=== PATIENT | female | born 1995 | race Caucasian/White ===

== ENCOUNTER → 2018-02-07 14:00 | Outpatient (CLI) | payer BC, SELFPAY ==
[2018-02-14 13:21] LABS: HPV Reflexed? NOT INDICATED
== END ==
PROVIDERS: Family Provider Family Medicine; Visit Provider Obstetrics & Gynecology
DX: Z12.4 Encounter for screening for malignant neoplasm of cervix (principal)
CPT/HCPCS: 88175; G0145

== ENCOUNTER → 2018-04-18 14:19 | Outpatient (CLI) | payer BC, SELFPAY ==
--- NOTE | 2018-04-18 | CER_PTH ---
PATIENT: PANCHITO SHER LOC: [facility] U#:[id number] AGE/SX: 29/F ROOM: RE04/18/[address]: Dr. Aditi Hernandez MD : 1995 BED: DIS: SPEC #: [id number] RECD: 04/18/18 14:32 STATUS: SHAEKEL QUINTANA #: [id number] RISSA: 04/18/18 00:[address]: Aditi Hernandez DEPT: SURGICAL PATHOLOGY RECD BY: Ron Perry Tissues: A - Uterine cervix, NOS B - Endocervical Procedures: Pap Stain (control) Special Stain Group II Surgery Specimen Level IV Cell Block HEADER OPERATION: Colposcopy with biopsy PRE-OP DIAGNOSIS: HGSIL TISSUE SUBMITTED: A - Cervical biopsy, B - ECC MICROSCOPIC DIAGNOSIS A. Cervix, biopsy: Focal changes consistent with HPV cytopathic effects. Acute and chronic inflammation and squamous metaplasia. See comment. B. ECC: Rare minute fragment of benign endocervical epithelium, negative for dysplasia. SJ:flores 04/19/18 COMMENT A. Results from immunohistochemistry ([id number]) for surrogate HPV marker (p16) will be reported separately. Case has been reviewed in consultation with Dr. Brown who concurs with the above diagnosis. IDC:AM MICROSCOPIC DESCRIPTION Slides are reviewed. GROSS DESCRIPTION A - Received in fixative is one container labeled with the patient's name and designated cervical biopsy. The specimen consists of multiple irregular fragments of light garcia soft tissue that in aggregate measure 0.5 x 0.3 x 0.1 cm. The specimen is totally submitted in one cassette. B - Received in fixative is one container labeled with the patient's name and designated ECC. The specimen consists of scant fragments of garcia soft tissue measuring <0.1 cm in greatest dimension. The specimen is filtered and submitted entirely in one cassette. The rest of the formalin solution is submitted for cytospin and cell block preparation (cassette 2). / GABBY:flores 04/18/18 TC:5 CPT: 08968 x2, 71900
--- NOTE | 2018-04-18 | IMM_PTH ---
PATIENT: PANCHITO SHER LOC: [facility] U#:[id number] AGE/SX: 29/F ROOM: RE04/18/[address]: Dr. Aditi Hernandez MD : 1995 BED: DIS: SPEC #: [id number] RECD: 04/19/18 13:28 STATUS: SHAKEEL MARIANO #: [id number] RISSA: 04/18/18 00:[address]: Aditi Hernandez DEPT: IMMUNOHISTOCHEMISTRY RECD BY: Karma Alvarado Tissues: A - Uterine cervix, NOS Procedures: p16 (initial) KI-67 (add) PHYSICIAN & INSTITUTION [place] [id number] SPECIMEN INFORMATION: Tissue Source: A - Cervical biopsy Clinical Info: HGSIL Specimen Number: [id number] CPT code: 45695, 08120 METHODOLOGY: Deparaffinized sections of prefer/formalin-fixed tissue or PAP/DQ stained slides are incubated with monoclonal/polyclonal antibodies/oligonucleotide probes. Localization is made via biotin free immunoperoxidase method. Appropriate controls are performed and reacted as expected. Results on target cell population are indicated in the following table: RESULTS: ANTIBODY / CLONE RESULT Block A P16 (E6H4) positive, focal and patchy Ki-67 (30-9) positive, low These tests were developed and their performance characteristics determined by [facility]. They may not have been cleared or approved by the [place]. Food and Drug Administration. The FDA has determined that such clearance or approval is not necessary. INTERPRETATION: A. Cervical biopsy: Consistent with HPV cytopathic effects. GABBY:flores 04/22/18
== END ==
PROVIDERS: Referring Provider Obstetrics & Gynecology; Visit Provider Obstetrics & Gynecology
DX: R87.612 Low grade squamous intraepithelial lesion on cytologic smear of cervix (LGSIL) (principal)
CPT/HCPCS: 88305; 88313; 88341; 88342

== ENCOUNTER 2018-05-28 11:27 | Day surgery (SDC) | payer BC, SELFPAY ==
--- NOTE | 2018-05-27 17:51 | HP.PCM_ITS ---
- Problem List (1) Cervical dysplasia Status: Acute History Date of Admission: 05/28/18 History of this : This is a 22 year-old, G [], P [], at weeks gestational age. Allergies No Known Allergies Allergy (Verified 05/21/18 14:34) Home Medications: Home Medications Ascorbic Acid/Multivit-Min [Emergen-C 1,000 mg Packet] 1,000 mg PO DAILY 05/21/18 Norgestimate-Ethinyl Estradiol [Tri-Sprintec Tablet] 1 each PO DAILY 05/21/18 Smoking Status: Never smoker History Past Pregnancies: Past Pregnancies Delivery Date Name GA/Weeks Outcome Route Weight Infant Gender Labor Length Anesthesia Delivery Location Provider FOB Review of Systems Constitutional: Denies: Chills, Fever, Weight Change HEENT: Denies: Difficulty Hearing, Difficulty Swallowing, Nasal bleeding, Nasal Congestion, Sore Throat Cardiovascular: Denies: Chest Pain, Palpitations Respiratory: Denies: Shortness of Breath, Wheezing Gastrointestinal: Denies: Constipation, Diarrhea, Nausea, Vomiting Genitourinary: Denies: Dysuria, Frequency, Hematuria, Incontinence, Urgency Musculoskeletal: Denies: Joint Pain, Muscle pain Skin: Denies: Lesions, Skin Changes Neurological: Denies: Focal weakness, Numbness Psychiatric: Denies: Anxiety, Depression Endocrine: Denies: Heat/ Cold Intolerance Hematologic/ Lymphatic: Denies: Easy Bleeding Physical Exam General: Alert, Oriented x3, No apparent distress HEENT: Atraumatic, Normocephalic. Negative for: Thyromegaly, Lymphadenopathy Cardiovascular: Regular rate, Regular Rhythm Lungs: Clear to auscultation Abdomen: Bowel Sounds Present, Gravid Neurological: Deep Tendon Reflexes 2+/4 and Symmetrical, Neuro grossly intact BODY MECHANIC APPRENTICE: Normal external genitalia. Negative for: Vulvar lesions Assessment/Plan All Active Problems Cervical dysplasia (Acute) This is a 22 year-old, G ). Cervical dysplasia noted on pap smear and has had cervical biopsies with colposcopy. Ectocervix and endocervix histology do not match the pap smear cytology. Cytology indicating severe dysplasia/HGSIL and biopsies with endocervical currettings indicating only HPV changes. Plan LEEP with ECC for further evaluation. The preop preparation, the intraop procedures and the postop recovery reviewed and accepted. The risks of bleeding, infection and other organ damage including bladder, bowel and uterine perforation reviewed, accepted and consented.
[2018-05-28 11:57] VITALS: BP 112/75; PULSE 79; RESP 16; TEMP 36.8; O2SAT 100; BMI 28.0
[2018-05-28 12:00] LABS: Internal QC Validated? YES +Cl - CLEAR BKGD
[2018-05-28 12:05] LABS: Pregnancy, Urine Negative Negative
[2018-05-28 12:12] LABS: Hematocrit 42.3 % (37-47); Hemoglobin 14.3 g/dl (12.0-15.0); Mean Corp Hgb Conc 33.8 g/gl (32-36); Mean Corpuscular Hgb 28.8 pg (27.0-32.0); Mean Corpuscular Volume 85.1 fL (81-99); Platelet Count 190 K/mm3 (150-450); RBC Distribution Width CV 12.8 % (11.6-14.6); RBC Distribution Width SD 39.2 fl (35.1-43.9); Red Blood Count 4.97 M/mm3 (4.2-5.4)
[2018-05-28 12:16] LABS: Scan Indicated on CBC? Y/N NO
[2018-05-28 12:24] LABS: International Normalized Ratio 1.1; Prothrombin Time (Protime)PT. 13.8 SECONDS (11.7-14.9)
[2018-05-28 12:25] LABS: Partial Thromboplast Time 29.1 Seconds (24.1-36.2)
--- NOTE | 2018-05-28 13:00 | CER_PTH ---
PATIENT: PANCHITO SHER LOC: [facility] [place] U#:[id number] AGE/SX: 22/F ROOM: RE05/28/[address]: Dr. Aditi Hernandez MD : 1995 BED: DIS: 05/28/2018 SPEC #: [id number] RECD: 05/29/18 06:58 STATUS: SHAKEEL MARIANO #: [id number] RISSA: 05/28/18 13:[address]: Aditi Hernandez DEPT: SURGICAL PATHOLOGY RECD BY: Ricardo Lucero ENTERED: 05/29/18 12:17 SP TYPE: CERV OTHR DR: Dr. Barbara Thayer MD Tissues: A - Uterine cervix, NOS B - Endocervical Procedures: Surgery Specimen Level IV Surgery Specimen Level V HEADER OPERATION: DANELLE cone, endocervical curettage PRE-OP DIAGNOSIS: Cervical dysplasia TISSUE SUBMITTED: A - Ectocervical curettings, B - Endocervical curettings MICROSCOPIC DIAGNOSIS A. Ectocervix, LEEP conization: Focal minimal changes suspicious for HPV cytopathic effects. Chronic inflammation and squamous metaplasia. Focal clusters of benign mesonephric glands in the deeper portion of the tissue.. Resection margins are free of dysplastic changes. B. Endocervical curettings: Fragments of benign endocervical epithelium, benign ecto- and endocervical mucosa with chronic inflammation, blood and mucous, negative for dysplasia. GABBY:flores 05/30/18 COMMENT Please make reference to previous specimen ([id number]) cervix, biopsy with diagnosis of focal changes consistent with HPV cytopathic effects. Case has been reviewed in consultation with Dr. Brown who concurs with the above diagnosis. IDC:AM MICROSCOPIC DESCRIPTION Slides are reviewed. GROSS DESCRIPTION A - Received in fixative is one container labeled with the patient's name and designated ectocervical biopsy. The specimen consists of a garcia, indurated piece of LEEP conization measuring 2 x 1.2 cm and up to 0.3 cm in thickness. No mucosal lesion is identified. The nonmucosal surface is inked black. The specimen is serially sectioned and submitted entirely in four cassettes with each cassette containing one quadrant. B - Received in fixative is one container labeled with the patient's name and designated endocervical curettings. The specimen consists of multiple irregular fragments of garcia mucoid tissue that in aggregate measure 2 x 2 x 0.2 cm. The specimen is totally submitted in one cassette. / SJ:rg 05/29/18 TC:3 CPT: 50292, 24876
[2018-05-28] MEDS: Vasopressin 20 UNITS/ML Vial (13:10)
--- NOTE | 2018-05-28 13:13 | PCM.OPRPT ---
Problem List (1) Cervical dysplasia Status: Acute Report of Operation Date of Procedure: 05/28/18 Pre-Operative Diagnosis: Cervical dysplasia Post-Operative Diagnosis: Cervical dysplasia Surgery/Procedure Performed:: LEEP procedure and endocervical curettage Description of Surgical Findings:: Uterus was noted to be in a slight retroflexed position. Bilateral adnexa noted to be benign on pelvic exam under anesthesia. Cervix was noted to be within normal limits with a small area lack of Lugol's absorption at approximately the 3 o'clock position. Type of Anesthesia:: Local MAC Anesthesiologist: Darci Sellers Special Medications: 10 cc of 1% lidocaine placed directly to the cervix and 20 units of vasopressin and 100 cc of normal saline with 10 cc placed directly to the cervix Specimen's removed: Ectocervix and endocervix Drains: None Estimated Blood Loss (mL): Minimal Fluids Replaced: Lactated Ringer Description of Procedure: Patient presented to the operating suite in an n.p.o. status. Patient had been previously consented for a LEEP procedure and endocervical curettage for cervical dysplasia. Patient was placed on the operating room table and monitors appropriately placed. Under a MAC anesthetic and wants to be adequate she was placed in the dorsal lithotomy position with Charlie stirrups. She was prepped and draped in normal sterile fashion. Pelvic exam under anesthesia current with a slight retroflexed position of the uterus being noted. Uterus was normal size and adnexa were noted to be within normal limits as well. After draping and timeout occurred, the patient had the Rodo-coated bivalve speculum placed to the cervix and vaginal vault. The cervix was in full view and 1% lidocaine was placed to the 4 quadrants of the well. The diluted vasopressin was then placed to the 4 quadrants of the cervix with 10 cc total and patient tolerated well. At this point in time the local solution was placed to the cervix with identification of lack of absorption of the lobe was approximately the 3 o'clock position of the cervix. This then was followed by the small loop electrical excision tool being assembled and the top layer of that cervix to encompass that at 3 o'clock position was removed. This was sent away for pathological evaluation. The Kevorkian was then used to sequentially scraped the entire end of cervical canal in this sample was sent away separately. Cauterization was then used at the lip site for hemostasis. Hemostasis was noted. Monsel was then placed to the cervix. All instruments were then removed from the vagina. Patient tolerated the procedure well. Sponges were counts correct x2. Patient was awakened additionally taken to recovery room for discharge to the home setting. Grafts/Implants Used: None - Complications None - Admit VTE Documentation VTE Present on Admission: No VTE Mechan Device Prophylaxis: SCD's VTE Pharm Prophylaxis ordered?: No Reason prophylaxis not ordered:: Procedure Not Indicated
[2018-05-28 13:19] VITALS: BP 105/70; BP 112/75; PULSE 65; RESP 16; TEMP 36.2; O2SAT 100
[2018-05-28] MEDS: FERRIC SUBSULFATE 8 GM SOLN (13:19)
--- NOTE | 2018-05-28 13:20 | DCINST_ITS ---
Discharge Diet: No Restrictions Discharge Activity: Return to Normal Activity, May not drive while taking narcotic pain medications. Return to work on:: 05/31/18 May shower in (days): 0 - TODAY May resume sexual activity in: 4 weeks - nothing in the vagina for 4 weeks. Weight Bearing Status: Full weight bearing Lifting Restrictions: none Call your doctor if you observe: Fever of 101 or Higher, Using more than one pad per hour Cleanse incision/area with: Soap & Water Additional Instructions: Motrin, ibuprofen over the counter for discomfort. Allergies/Adverse Reactions: Allergies No Known Allergies Allergy (Verified 05/21/18 14:34) Medications to take at Discharge Ascorbic Acid/Multivit-Min [Emergen-C 1,000 mg Packet] 1,000 mg PO DAILY 05/21/18 Norgestimate-Ethinyl Estradiol [Tri-Sprintec Tablet] 1 each PO DAILY 05/21/18 Primary Care Physician: Barbara Thayer MD [Primary Care Provider] - Test Results: Test results from this visit will be discussed in further detail at your follow- up appointment, if applicable. Please Follow Up With: Aditi Hernandez MD When: 1-2 weeks postop
[2018-05-28 13:26] VITALS: BP 112/75; BP 115/82; PULSE 58; RESP 16; O2SAT 100
[2018-05-28 13:31] VITALS: BP 112/75; BP 115/86; PULSE 58; RESP 16; O2SAT 98
[2018-05-28 13:36] VITALS: BP 108/82; BP 112/75; PULSE 64; RESP 16; TEMP 36.6; O2SAT 99
[2018-05-28 13:50] VITALS: BP 112/75
== END 2018-05-28 14:15 | disposition home or self-care (01) ==
LOC: SDC 11:32 → AC 11:35
PROVIDERS: Anesthesiology; Family Provider Family Medicine; PCP Family Medicine; Referring Provider Obstetrics & Gynecology; Visit Provider Obstetrics & Gynecology
PROC: 0UBC7ZZ Excision of Cervix, Via Natural or Artificial Opening (ICD-10-PCS; CPT 57522; principal; 2018-05-28 12:45)
DX: N72 Inflammatory disease of cervix uteri (principal); N87.9 Dysplasia of cervix uteri, unspecified
CPT/HCPCS: 00940; 57522; 36415; 81025; 85027; 85610; 85730; 86850; 86900; 88305; 88307; J7120

== ENCOUNTER → 2018-09-25 | Outpatient (CLI) | payer BC, SELFPAY ==
[2018-10-03 15:49] LABS: HPV HC, High Risk Positive (Negative); HPV Reflexed? YES, CHARGE PATIENT
== END | disposition home or self-care (01) ==
LOC: LABSPEC 11:47
PROVIDERS: Visit Provider Obstetrics & Gynecology
DX: R87.613 High grade squamous intraepithelial lesion on cytologic smear of cervix (HGSIL) (principal)
CPT/HCPCS: 87624; 88175; G0145

== ENCOUNTER → 2019-02-11 | Outpatient (CLI) | payer BC, SELFPAY ==
[2019-02-17 13:37] LABS: HPV HC, High Risk Negative (Negative)
[2019-02-18 15:48] LABS: HPV Reflexed? YES, CHARGE PATIENT
== END | disposition home or self-care (01) ==
LOC: LABSPEC 15:49
PROVIDERS: Referring Provider Obstetrics & Gynecology; Visit Provider Obstetrics & Gynecology
DX: R87.610 Atypical squamous cells of undetermined significance on cytologic smear of cervix (ASC-US) (principal); Z12.4 Encounter for screening for malignant neoplasm of cervix
CPT/HCPCS: 87624; 88175; G0145

== ENCOUNTER → 2019-10-21 | Outpatient (CLI) | payer OTHER, SELFPAY ==
[2019-10-21 16:48] LABS: Chlamydia Trachomatis by PCR Negative (Negative); Neisserai gonorrhoeae by PCR Negative (Negative); Probe Check PASS; Sample Adequacy Control PASS; Specimen Processing Control PASS
== END | disposition home or self-care (01) ==
LOC: LABSPEC 13:33
PROVIDERS: Visit Provider Obstetrics & Gynecology
DX: R87.613 High grade squamous intraepithelial lesion on cytologic smear of cervix (HGSIL) (principal); Z11.3 Encounter for screening for infections with a predominantly sexual mode of transmission
CPT/HCPCS: 87491; 87591

== ENCOUNTER 2024-04-07 08:06 | Inpatient (IN) | payer OTHER, SELFPAY ==
[2024-04-07] VITALS (35 sets, daily range): BP systolic 120–175; BP diastolic 61–104; PULSE 65–97; RESP 14–20; TEMP 36.4–37.3; O2SAT 92–96; BMI 43.6
[2024-04-07 07:46] LABS: ROM Internal Control Test YES-OK TO RESULT pt. (Internal QC)
[2024-04-07 07:47] LABS: ROM Patient Test POSITIVE (Negative); Record Kit Lot#, ROM+ K1972
[2024-04-07] MEDS: miSOPROStol 25 MCG TABLET PO (08:38)
[2024-04-07 08:45] LABS: Absolute Lymphocyte Count 1.29 X10^3/uL (0.83-4.51); Absolute Neutrophil Count 8.4 X10^3/uL (2.0-7.7); Basophil# 0.04 X10^3/uL; Basophil% 0.4 % (0-1); Eosinophil# 0.07 X10^3/uL; Eosinophils% 0.7 % (0-5); Hematocrit 34.3 % (37-47); Hemoglobin 11.6 g/dL (12.0-15.0); Lymphocyte # 1.29 X10^3/ul (0.83-4.51); Lymphocyte % 12.4 % (19-41); Mean Corp Hgb Conc 33.8 g/dL (32-36); Mean Corpuscular Hgb 27.8 pg (27.0-32.0); Mean Corpuscular Volume 82.1 fL (81-99); Mean Platelet Vol. 12.5 fl (6.2-12.0); Monocyte# 0.55 X10^3/uL; Monocyte% 5.3 % (0-10); NRBC Flagged by Analyzer 0 % (0-5); Neutrophil # 8.36 X10^3/uL (2.7-7.7); Neutrophil % 80.5 % (47-70); Platelet Count 176 K/mm3 (150-450); RBC Distribution Width CV 13.1 % (11.6-14.6); RBC Distribution Width SD 38.5 fl (35.1-43.9); Red Blood Count 4.18 M/mm3 (4.2-5.4); White Blood Count 10.4 K/mm3 (4.4-11.0)
[2024-04-07 09:15] LABS: Syphilis Antibodies Non-reactive
[2024-04-07] MEDS: Oxytocin 15 Units/NS 250ml 15 UNITS/250 ML IV.SOLN 2 UNITS IV (12:52)
[2024-04-07] MEDS: Lactated Ringers 1,000 ML 50 ML IV (12:52)
[2024-04-07] MEDS: LACTATED RINGERS 500 ML 999 ML IV (14:55)
[2024-04-07] MEDS: 0.9% Normal Saline 100 ML IV.SOLN. 300 ML INTRA-UTER (17:16)
[2024-04-07] MEDS: Lactated Ringers 1,000 ML 999 ML IV (17:16)
[2024-04-07] MEDS: fentaNYL-bupivacaine (epidural) 100 ML BAG EPIDURAL (17:57)
[2024-04-07] MEDS: Oxytocin 10 UNITS/ML Vial IM (21:32)
[2024-04-08] VITALS (7 sets, daily range): BP systolic 114–131; BP diastolic 67–89; PULSE 77–88; RESP 14–16; TEMP 36.4–36.8; O2SAT 95–98
[2024-04-08] MEDS: 0.9% Saline Lock 10 ML Syringe IV (06:00)
[2024-04-08] MEDS: Rho(D) Immune Globulin 300 MCG (1500 Unit) Syringe IV (06:00)
[2024-04-08 07:30] LABS: Absolute Lymphocyte Count 1.67 X10^3/uL (0.83-4.51); Absolute Neutrophil Count 16.2 X10^3/uL (2.0-7.7); Basophil# 0.04 X10^3/uL; Basophil% 0.2 % (0-1); Eosinophil# 0.02 X10^3/uL; Eosinophils% 0.1 % (0-5); Hematocrit 32.4 % (37-47); Hemoglobin 11.2 g/dL (12.0-15.0); Lymphocyte # 1.67 X10^3/ul (0.83-4.51); Lymphocyte % 8.7 % (19-41); Mean Corp Hgb Conc 34.6 g/dL (32-36); Mean Corpuscular Hgb 28.2 pg (27.0-32.0); Mean Corpuscular Volume 81.6 fL (81-99); Mean Platelet Vol. 11.9 fl (6.2-12.0); Monocyte# 1.21 X10^3/uL; Monocyte% 6.3 % (0-10); NRBC Flagged by Analyzer 0 % (0-5); Neutrophil # 16.24 X10^3/uL (2.7-7.7); Neutrophil % 84.1 % (47-70); Platelet Count 193 K/mm3 (150-450); RBC Distribution Width CV 12.9 % (11.6-14.6); RBC Distribution Width SD 37.9 fl (35.1-43.9); Red Blood Count 3.97 M/mm3 (4.2-5.4); White Blood Count 19.3 K/mm3 (4.4-11.0)
[2024-04-09 02:38] VITALS: BP 127/82; PULSE 83; RESP 16; TEMP 36.3; O2SAT 96
[2024-04-09 07:40] VITALS: BP 130/96; PULSE 76; RESP 16; TEMP 36.2; O2SAT 96
[2024-04-09 08:00] VITALS: BP 137/87
[2024-04-09 09:08] VITALS: BP 125/87
== END 2024-04-09 10:40 | disposition home or self-care (01) | DRG 807 ==
LOC: WPOUT 08:32 → WP 21:37
PROVIDERS: Admitting Provider Advanced Practice Midwife; Referring Provider Advanced Practice Midwife; Visit Provider Advanced Practice Midwife
DX: O42.92 Full-term premature rupture of membranes, unspecified as to length of time between rupture and onset of labor (principal); Z37.0 Single live birth; O35.8XX0 Maternal care for other (suspected) fetal abnormality and damage, not applicable or unspecified; O99.214 Obesity complicating childbirth; O69.81X0 Labor and delivery complicated by cord around neck, without compression, not applicable or unspecified; O99.892 Other specified diseases and conditions complicating childbirth; O70.1 Second degree perineal laceration during delivery; Z3A.38 38 weeks gestation of pregnancy; Z79.82 Long term (current) use of aspirin; Z67.91 Unspecified blood type, Rh negative
CPT/HCPCS: 36415; 59025; 59050; 84112; 85025; 85461; 86780; 86850; 86900; 86901; 90384; 99221; J7120; A4216; G0378; J2790; J2791